=== PATIENT | male | born 1960 | race Hispanic/Latino ===

== ENCOUNTER → 2019-03-06 | Outpatient (CLI) | payer OTHER ==
[~2019-03-06] MED LIST: ALBU18HF7 IH; CICL60SU2 TP; CITA-107 PO; FURO20TA6 PO; GABA-531 PO; GLIP10TA19 PO; LOSA100T58 PO; METF-444 PO; PANT20TA12 PO; POTA10TA11 PO; PRAV20TA4 PO; RIFA550T PO; SPIR100T5 PO
== END | disposition home or self-care (01) ==
LOC: RAH 10:19
PROVIDERS: ATTEND Internal Medicine Cardiovascular Disease
DX: Z13.6 Encounter for screening for cardiovascular disorders (principal)
CPT/HCPCS: 75571